=== PATIENT | female | born 1985 | race American Indian/Alaskan Native ===

== ENCOUNTER 2022-06-13 23:09 | Emergency (ER) | payer SELFPAY ==
[2022-06-14] MEDS ORDERED: KETOROLAC 60 MG/2 ML INJ IM STA (04:01)
--- NOTE | 2022-06-14 05:01 | XRay Report ---
CERVICAL SPINE 5 VIEWS INDICATION / CLINICAL INFORMATION: NECK AND BACK PAIN. COMPARISON: None available. FINDINGS: VERTEBRAE: No acute fracture. No significant malalignment. DISC SPACES / FACET JOINTS:No significant abnormality. PARASPINAL SOFT TISSUES:No significant abnormality. ADDITIONAL FINDINGS: None. IMPRESSION: No evidence of acute cervical spine fracture. No significant degenerative change. Signer Name: Angel Dunn II, MD Signed: 06/14/2022 4:56 AM Workstation Name: [id number]
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
[2022-06-14] MEDS ORDERED: KETOROLAC 30 MG/1 ML INJ ONE (06:42)
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
[2022-06-14 07:21] VITALS: BP 135/78
== END 2022-06-14 07:20 | disposition home or self-care (01) ==
LOC: ED 23:09
DX: S16.1XXA Strain of muscle, fascia and tendon at neck level, initial encounter (principal); X58.XXXA Exposure to other specified factors, initial encounter; Y93.89 Activity, other specified; Y92.89 Other specified places as the place of occurrence of the external cause; Y99.8 Other external cause status; M62.830 Muscle spasm of back
CPT/HCPCS: 72040; 72100; 96372; 99283; J1885